=== PATIENT | female | born 1950 | race Two or more races ===

== ENCOUNTER 2019-04-17 12:39 | Emergency (ER) | payer OTHER ==
[2019-04-17 13:02] VITALS: BP 136/91; PULSE 105; TEMP 98.2
[2019-04-17 13:15] VITALS: BMI 22.8
--- NOTE | 2019-04-17 14:31 | PDOC ---
History of Present Illness - General Chief Complaint: Rash Stated Complaint: IRRITATION TO LT ARM Time Seen by Provider: 04/17/19 14:30 History Source: Patient - History of Present Illness Initial Comments: 04/17/19 14:46 The patient is a 68 year old female with a PMH of Sarcoid, HTN, HLD who presents to our ED c/o 1 day h/o R arm rash. Rash came on suddenly and is associated with a burning pain. No fevers/chills. Notes she is unsure if she had varicella as a child. Patient lives with her daughter and granddaughter. Grandaugter recieved her 2nd dose of the varicella vaccine two days previous. NKDA Surgical: C/S, Hysterectomy, Lung Biopsy, B/L Mastectomy 04/17/19 16:11 Past History - Past Medical History Allergies/Adverse Reactions: Allergies Allergy/AdvReac Type Severity Reaction Status Date / Time No Known Drug Allergies Allergy Unverified 10/22/12 16:32 Home Medications: Ambulatory Orders Amlodipine Besylate [Norvasc] 10 mg PO DAILY 11/06/12 Aspirin [ASA] 81 mg PO DAILY 11/06/12 Calcium Carbonate/Vitamin D3 [Calcium + Vitamin D Tablet] 1 each PO BID Enalapril Maleate [Vasotec] 10 mg PO DAILY 11/06/12 Glyburide/Metformin HCl [Glyburid-Metformin 1.25-250 mg] 1.25 each PO DAILY 04/11 Atorvastatin Ca [Lipitor] 20 mg PO DAILY 11/07/12 Hydrochlorothiazide [Hctz] 25 mg PO DAILY 11/07/12 Valacyclovir HCl [Valtrex -] 1,000 mg PO TID #20 tablet 04/17/19 Anemia: No Asthma: No Cancer: No Cardiac Disorders: Yes CVA: No COPD: No CHF: No Dementia: No Diabetes: Yes GI Disorders: No Disorders: No HTN: Yes Hypercholesterolemia: Yes Liver Disease: No Seizures: No Thyroid Disease: No Other medical history: osteo - Surgical History Abdominal Surgery: No Appendectomy: No Cardiac Surgery: No Cholecystectomy: Yes Lung Surgery: Yes (lung bx for sarcoidosis) Neurologic Surgery: No Orthopedic Surgery: No - Immunization History Immunization Up to Date: Yes - Suicide/Smoking/Psychosocial Hx Smoking History: Never smoked Hx Alcohol Use: No Drug/Substance Use Hx: No Substance Use Type: None Hx Substance Use Treatment: No Review of Systems - Review of Systems Constitutional: No: Chills, Fever HEENTM: No: Recent change in vision Respiratory: No: Shortness of Breath, Stridor Cardiac (ROS): No: Chest Pain, Lightheadedness, Palpitations ABD/GI: No: Constipated, Diarrhea : No: Burning, Dysuria Integumentary: Yes: Rash *Physical Exam - Vital Signs Last Vital Signs Temp Pulse Resp BP Pulse Ox 98.2 F 105 H 20 136/91 98 04/17/19 13:00 04/17/19 13:00 04/17/19 12:41 04/17/19 13:00 04/17/19 13:00 - Physical Exam Comments: 04/17/19 14:51 Extremity: LUE: erythematous, macular rash on dorsal/lateral surface of arm w/ palmar involvement with some vesicles on dorsal/lateral surface of LUE, vesicles intact CV: S1, S2, no M/R/G Respiratory: CLTA B/L, no wheeze/crackle Abdomen: soft, non-tender, no TTP, no hernia/mass Neuro: A&O x3, CN II-XII intact, non ataxic, non antalgic gait Medical Decision Making - Medical Decision Making 04/17/19 14:47 68 year old female with presumptive LUE shingles. No neurological deficit on PE suggesting progressive disease + < 24 hours onset Will start patient on 7 day course of Valcyclovir and analgesia w/Tylenol. 04/17/19 15:01 Patient counseled to keep rash covered, and limit skin exposure to household contacts including 1 year old granddaughter who was recently given her second dose of Varicella vaccine. I discussed the physical exam findings, ancillary test results and final diagnoses with the patient. I answered all of the patient's questions. The patient was satisfied with the care received and felt comfortable with the discharge plan and treatment plan. The patient will return to the Emergency Department with any new, persistent or worsening symptoms. *DC/Admit/Observation/Transfer Diagnosis at time of Disposition: Herpes zoster - Discharge Dispostion Disposition: HOME Condition at time of disposition: Good Decision to Admit order: No - Prescriptions Prescriptions: Valacyclovir HCl [Valtrex -] 1,000 mg PO TID #20 tablet - Referrals Referrals: Rolanda Orlando MD [Primary Care Provider] - - Patient Instructions Printed Discharge Instructions: DI for Shingles Additional Instructions: We have given your your first dose of a 7 day anti-viral medication. Please take the additional two doses as directed today. Starting tomorrow take 3 doses daily for the next 6 days. Keep your arm covered and encourage your household members to wash their hands often. You can take Tylenol (up to 4000 mg daily) for your pain. Follow-up with Dr. Fischer in the next 3 days for further evaluation and pain management. Return to the Emergency Department for any new/worsening/concerning symptoms. - Post Discharge Activity
[2019-04-17] MEDS ORDERED: ACETAMINOPHEN 500 MG TABLET (FP) PO ONE (14:55)
[2019-04-17] MEDS ORDERED: valACYclovir HCL 1000 MG TABLET PO ONE (14:56)
--- NOTE | 2019-04-17 15:27 | PDOC ---
Documentation entered by Zahra Lopez SCRIBE, acting as scribe for Elise Tucker MD. Elise Tucker MD: This documentation has been prepared by the John huang Brenda, SCRIBE, under my direction and personally reviewed by me in its entirety. I confirm that the documentation accurately reflects all work, treatment, procedures, and medical decision making performed by me. Attending Attestation - Resident Resident Name: Livia Cisse - ED Attending Attestation I have performed the following: I have examined & evaluated the patient, The case was reviewed & discussed with the resident, I agree w/resident's findings & plan, Exceptions are as noted - HPI HPI: 04/17/19 14:59 The patient is a 68 year old female, with a significant PMH of Sarcoid, DM, HLD , HTN who presents to the emergency department with a sudden onset of right arm itchiness since 7pm yesterday. The patent reports noticing, last night, that the itch became painful, and felt like a burning rash. The patient denies chest pain, shortness of breath, headache and dizziness. Denies fever, chills, nausea, vomiting, diarrhea and constipation. Denies dysuria, frequency, urgency and hematuria. Allergies: NKA Past surgical history: lung bx for sarcoidosis, C/S, Hysterectomy, B/L Mastectomy Social history: Denies tobacco use, alcohol use or illicit drug use. PCP: Not reported - Physicial Exam PE: GENERAL: Awake, alert, and fully oriented, in no acute distress HEAD: No signs of trauma EYES: PERRLA, EOMI, sclera anicteric, conjunctiva clear ENT: Auricles normal inspection, hearing grossly normal, nares patent, oropharynx clear without exudates. Moist mucosa NECK: Normal ROM, supple, no lymphadenopathy, JVD, or masses LUNGS: Breath sounds equal, clear to auscultation bilaterally. No wheezes, and no crackles HEART: Regular rate and rhythm, normal S1 and S2, no murmurs, rubs or gallops ABDOMEN: Soft, nontender, normoactive bowel sounds. No guarding, no rebound. No masses EXTREMITIES: Normal range of motion, no edema. No clubbing or cyanosis. No cords, erythema, or tenderness NEUROLOGICAL: Cranial nerves II through XII grossly intact. Normal speech, normal gait. Motor and sensation intact SKIN: Warm, dry, normal turgor. +Vesicular rash to L upper arm and L palm. Vesicles intact. - Medical Decision Making Pt with shingles, +prior history of chickenpox. Precautions given- avoid women, immunocompromised, and children who are unvaccinated. Valtrex to suppress, tylenol for pain. Stable for DC home.
[2019-04-17] MEDS ORDERED: ACETAMINOPHEN 325 MG TABLET (FP) ONE (15:46)
[2019-04-17] MEDS ORDERED: valACYclovir HCL 500 MG TABLET (FP) ONE (15:46)
== END 2019-04-17 16:00 | disposition home or self-care (01) ==
LOC: JER 12:39
DX: B02.9 Zoster without complications (principal); I10 Essential (primary) hypertension; E78.00 Pure hypercholesterolemia, unspecified; E11.9 Type 2 diabetes mellitus without complications; Z79.84 Long term (current) use of oral hypoglycemic drugs
CPT/HCPCS: 99281-25

== ENCOUNTER 2019-06-03 08:32 | Day surgery (SDC) | payer OTHER ==
[2019-06-02 09:24] VITALS: BMI 22.8
[2019-06-03] MEDS ORDERED: MIDAZOLAM HCL 2 MG/2 ML SINGLE DOSE VIAL ONE (09:14)
[2019-06-03] MEDS ORDERED: PROPOFOL 20 ML ONE (09:14)
--- NOTE | 2019-06-03 10:15 | HP ---
[facility] - Chief Complaint Chief Complaint: left hand pain, numbness, tingling, weakness History of Present Illness: left CTS History Source: Patient Limitations to Obtaining History: No Limitations - Past Medical History Allergies/Adverse Reactions: Allergies Allergy/AdvReac Type Severity Reaction Status Date / Time No Known Drug Allergies Allergy Unverified 10/22/12 16:32 - Current Medications Current Medications: Home Medications Medication Instructions Recorded Amlodipine Besylate [Norvasc] 10 mg PO DAILY 11/06/12 Aspirin [ASA] 81 mg PO DAILY 11/06/12 Calcium Carbonate/Vitamin D3 1 each PO BID 11/06/12 [Calcium + Vitamin D Tablet] Enalapril Maleate [Vasotec] 10 mg PO DAILY 11/06/12 Atorvastatin Ca [Lipitor] 20 mg PO DAILY 11/07/12 Hydrochlorothiazide [Hctz] 25 mg PO DAILY 11/07/12 Satellite Physical Exam - Physical Examination Vital Signs: Vital Signs Period Temp Pulse Resp BP Sys/Grubbs Pulse Ox Last 24 Hr 98.5 F-98.5 F 79-79 18-18 133-133/82-82 97 General Appearance: Well Nourished ENT: Clear Lung: Clear to auscultation Heart: Regular rate & rhythm Breasts: Soft Abdomen: Soft Extremities: No edema Satellite Impression/Plan - Impression/Plan Impression: left CTS Operative Procedure: left CTR Date to be Performed: 06/03/19
[2019-06-03] MEDS ORDERED: BUPIVACAINE HCL/PF 0.5% (5 MG/ML) 30 ML VIAL IJ ONE ×2 (10:49→11:15)
[2019-06-03] MEDS ORDERED: LIDOCAINE HCL 1%, 10 MG/ML (20ML VIAL) ONE (10:49)
[2019-06-03] MEDS ORDERED: ceFAZolin SODIUM 1 GM VIAL IVPB ONE (11:07)
[2019-06-03] MEDS ORDERED: ceFAZolin SODIUM 1 GM VIAL ONE (11:11)
[2019-06-03] MEDS ORDERED: LIDOCAINE HCL 1%, 10 MG/ML (20ML VIAL) INF ONE (11:15)
[2019-06-03] MEDS ORDERED: oxyCODONE HCL 5 MG TABLET PO PRN ×2 (11:28)
[2019-06-03] MEDS ORDERED: ONDANSETRON 4 MG/2 ML VIAL IVPUSH PRN (11:28)
[2019-06-03] MEDS ORDERED: LACTATED RINGERS SOLUTION 1,000 ML IV SCH (11:30)
--- NOTE | 2019-06-03 11:42 | OP ---
Operative Note - Note: Operative Date: 06/03/19 Pre-Operative Diagnosis: left CTS Operation: left CTR, tenosynovectomy Post-Operative Diagnosis: Same as Pre-op Surgeon: Giovanny Mckay Mail Agent: Sami Keyes Anesthesiologist/REFUND SPECIALIST: Cesar Siu Anesthesia: Local, MAC Specimens Removed: tenosynovium Estimated Blood Loss (mls): 0 Drains, Volume Out (mls): 0 Blood Volume Replaced (mls): 0 Fluid Volume Replaced (mls): 500 Operative Report Dictated: Yes
[2019-06-03 12:04] VITALS: TEMP 97.5
[2019-06-03 12:54] VITALS: BP 145/86; PULSE 63
--- NOTE | 2019-06-03 15:52 | SPEC ---
DATE OF OPERATION: 06/03/2019 PREOPERATIVE DIAGNOSIS: Left carpal tunnel syndrome. POSTOPERATIVE DIAGNOSIS: Left carpal tunnel syndrome. PROCEDURE: Left carpal tunnel release and tenosynovectomy. SURGEON: Giovanny Mckay MD ASSISTANTS: Sami Keyes M.D. ANESTHESIOLOGIST: Ángel Siu MD, overseeing THANG Siu. DRAINS: None. COMPLICATIONS: None. SPECIMENS: Tenosynovium, left wrist. BLOOD LOSS: None. BLOOD GIVEN: None. FLUID REPLACEMENT: 500 mL of Plasmalyte. INDICATIONS: This patient is a 68-year-old female with a preoperative diagnosis of a severe left carpal tunnel syndrome. After understanding the potential risks, complications, alternatives and benefits of surgery versus nonsurgical treatment, the patient elected to undergo this procedure. After extensive preoperative discussions, the patient understands that she may not get complete relief of her symptoms, including continuation of the numbness she has, finger stiffness. She may have weakness. She may need physical therapy. She understands these, other potential risks and complications which were discussed and has elected to go forward with surgery. DESCRIPTION OF PROCEDURE: The patient was brought to the operating room, peripheral IV placed and intravenous sedation was given. One gram of intravenous Ancef was given. MAC anesthesia was induced. A tourniquet was applied to the left upper arm and the left upper extremity was prepped and draped in sterile fashion. The entire case was done under 3.8 loupe magnification. A marking pen was utilized to shawnee out a longitudinal incision in an already existing skin crease. Twenty mL of 0.5% Marcaine mixed with 1% Lidocaine was injected in and around the surgical incision. The left upper extremity was elevated, exsanguinated with an Esmarch bandage and the tourniquet inflated to 250 mmHg. A No. 15 scalpel blade was utilized to cut down through the skin. Subcutaneous hemostasis was achieved with the bipolar cautery. Dissection was done through the superficial palmar fascia. Self-retaining retractors were placed into the wound. Under direct visualization, the transverse carpal ligament was transected with a No. 15 scalpel blade, exposing the median nerve and the contents of the carpal tunnel. The distal and proximal extents of the release were completed with a Littler scissor and checked with irrigation and my small finger. They were seen to be complete. Limited dissection was done on the radial side of the median nerve and more extensive dissection was done on the ulnar side of the median nerve. The patients nerve was seen to be quite compressed by epineurium and therefore a limited epineurotomy was performed. A Ragnell retractor was used to gently retract the median nerve in a radial direction. The patient had a lot of tenosynovitis and therefore a tenosynovectomy was performed off all 9 flexor tendons. This was passed off the field as tenosynovium left wrist. The floor of the carpal tunnel was checked. There were no abnormal masses or ganglion cysts. The area was copiously irrigated and washed out and closure begun. Undyed 4-0 Vicryl was used to close the deep dermal layer. Final skin reapproximation was done with horizontal mattress 4-0 nylon sutures. The area was then washed and dried, covered with Xeroform, 4x4s, fluffs between the fingers, Webril and a 4-inch plaster roll was utilized to make a volar splint, which was then wrapped with Lou and Coban. The tourniquet was taken down after a total tourniquet time of 17 minutes. There were no complications during the case. The patient tolerated the procedure well and was brought to the ambulatory recovery room in stable condition. Cipriano [id number]
--- NOTE | 2019-06-04 17:56 | PATH ---
Surgical Pathology Report Patient Name: CRIS JIMENEZ [facility]. Rec. #: [id number] /Age/Gender: 1950 (Age: 68) / F Account: [id number] Location: [facility] SURGICAL Taken: 06/03/2019 Received: 06/03/2019 Reported: 06/04/2019 Physicians: Cipriano Steen M.D. Specimen(s) Received LEFT TENOSYNOVIUM Clinical History Left carpel tunnel Final Diagnosis LEFT TENOSYNOVIUM, EXCISION: TENOSYNOVIAL TISSUE WITH FOCAL FIBROSIS. Electronically Signed Jose G Figueroa M.D. Gross Description Received in formalin, labeled "left tenosynovium" are multiple bennett t yellow, irregular portions of soft tissue measuring 2.5 x 2.0 x 2.2 cm in aggregate. The specimen is submitted in toto in one cassette. LEONID/06/03/2019 aquiles/06/03/2019
== END 2019-06-03 13:50 | disposition home or self-care (01) ==
LOC: JASU-SURG 08:32
PROVIDERS: ATTEND Orthopaedic Surgery
PROC: 0LB80ZZ Excision of Left Hand Tendon, Open Approach (ICD-10-PCS; 2019-06-03)
PROC: 01N50ZZ Release Median Nerve, Open Approach (ICD-10-PCS; principal; 2019-06-03 10:00)
DX: G56.02 Carpal tunnel syndrome, left upper limb (principal); M65.842 Other synovitis and tenosynovitis, left hand
CPT/HCPCS: 88304-TC

== ENCOUNTER 2019-07-29 07:12 | Day surgery (SDC) | payer OTHER ==
[2019-07-27 16:33] VITALS: BMI 22.8
--- NOTE | 2019-07-29 08:03 | HP ---
[facility] - Past Medical History Allergies/Adverse Reactions: Allergies Allergy/AdvReac Type Severity Reaction Status Date / Time No Known Drug Allergies Allergy Unverified 10/22/12 16:32 - Current Medications Current Medications: Home Medications Medication Instructions Recorded Amlodipine Besylate [Norvasc -] 10 mg PO DAILY 11/06/12 Aspirin [ASA -] 81 mg PO DAILY 11/06/12 Calcium Carbonate/Vitamin D3 1 each PO BID 11/06/12 [Calcium 600-Vit D3 200 Tablet] Enalapril Maleate [Vasotec -] 10 mg PO DAILY 11/06/12 Atorvastatin Ca [Lipitor] 20 mg PO DAILY 11/07/12 Hydrochlorothiazide [Hctz -] 25 mg PO DAILY 11/07/12 Hydrocodone/Acetaminophen 1 each PO Q6H #20 tablet MDD 4 06/03/19 [Hydrocodone-Acetamin 5-325 mg]
[2019-07-29] MEDS ORDERED: MIDAZOLAM HCL 2 MG/2 ML SINGLE DOSE VIAL ONE (08:43)
[2019-07-29] MEDS ORDERED: PROPOFOL 20 ML ONE (08:43)
--- NOTE | 2019-07-29 08:43 | HP ---
Satellite [facility] - Chief Complaint Chief Complaint: right hand pain/numbness - Past Medical History Allergies/Adverse Reactions: Allergies Allergy/AdvReac Type Severity Reaction Status Date / Time No Known Drug Allergies Allergy Unverified 10/22/12 16:32 - Current Medications Current Medications: Home Medications Medication Instructions Recorded Amlodipine Besylate [Norvasc -] 10 mg PO DAILY 11/06/12 Aspirin [ASA -] 81 mg PO DAILY 11/06/12 Calcium Carbonate/Vitamin D3 1 each PO BID 11/06/12 [Calcium 600-Vit D3 200 Tablet] Enalapril Maleate [Vasotec -] 10 mg PO DAILY 11/06/12 Atorvastatin Ca [Lipitor] 20 mg PO DAILY 11/07/12 Hydrochlorothiazide [Hctz -] 25 mg PO DAILY 11/07/12 Hydrocodone/Acetaminophen 1 each PO Q6H #15 tablet MDD 4 07/29/19 [Hydrocodone-Acetamin 5-325 mg] Satellite Physical Exam - Physical Examination Vital Signs: Vital Signs Period Temp Pulse Resp BP Sys/Grubbs Pulse Ox Last 24 Hr 97.9 F 87 20 137/84 98 General Appearance: Well Nourished, Well Developed, Alert & Oriented x3 ENT: Clear Lung: Normal air movement Heart: Regular rate & rhythm Extremities: Other (right hand- + tinles, + phalens, emg + cts) Neurological: Intact, Alert, Oriented Satellite Impression/Plan - Impression/Plan Impression: right cts Operative Procedure: right ctr Date to be Performed: 07/29/19
[2019-07-29] MEDS ORDERED: BUPIVACAINE HCL/PF 0.5% (5 MG/ML) 30 ML VIAL IJ ONE ×3 (09:26→10:01)
[2019-07-29] MEDS ORDERED: LIDOCAINE HCL 1%, 10 MG/ML (20ML VIAL) ONE (09:26)
[2019-07-29] MEDS ORDERED: ceFAZolin SODIUM 1 GM VIAL IVPB ONE (09:36)
[2019-07-29] MEDS ORDERED: ceFAZolin SODIUM 1 GM VIAL ONE (09:36)
[2019-07-29] MEDS ORDERED: LIDOCAINE HCL 1%, 10 MG/ML (20ML VIAL) NR ONE ×2 (10:00)
--- NOTE | 2019-07-29 10:26 | OP ---
Operative Note - Note: Operative Date: 07/29/19 Pre-Operative Diagnosis: right CTS Operation: right CTR, tenosynovectomy Post-Operative Diagnosis: Same as Pre-op Surgeon: Giovanny Mckay Senior Scheduler: Sami Keyes Anesthesiologist/TRADE SPECIALIST: Lior Guzman Anesthesia: Local, MAC Specimens Removed: tenosynovium Estimated Blood Loss (mls): 0 Drains, Volume Out (mls): 0 Blood Volume Replaced (mls): 0 Fluid Volume Replaced (mls): 500 Operative Report Dictated: Yes
[2019-07-29 11:55] VITALS: BP 140/76; PULSE 76; TEMP 98
[2019-07-29] MEDS ORDERED: oxyCODONE HCL 5 MG TABLET PO PRN (12:11)
[2019-07-29] MEDS ORDERED: ONDANSETRON 4 MG/2 ML VIAL IVPUSH PRN (12:11)
[2019-07-29] MEDS ORDERED: LACTATED RINGERS SOLUTION 1,000 ML IV SCH (12:15)
--- NOTE | 2019-07-29 20:52 | SPEC ---
DATE OF OPERATION: DATE OF DICTATION: 07/29/2019 PREOPERATIVE DIAGNOSIS: Right carpal tunnel syndrome. POSTOPERATIVE DIAGNOSIS: Right carpal tunnel syndrome. PROCEDURE: Right carpal tunnel release and tenosynovectomy. SURGEON: Giovanny Mckay MD RIVER EXPEDITION GUIDE: Sami Keyes MD ANESTHESIA: Lior Guzman CRNA, MAC anesthesia with local injection of 10 mL 0.5% Marcaine, 1% lidocaine mix. DRAINS: None. COMPLICATIONS: None. SPECIMENS: Tenosynovium. ESTIMATED BLOOD LOSS: None. BLOOD GIVEN: None. FLUID REPLACEMENT: 500 mL. INDICATION FOR PROCEDURE: This patient is a 68-year-old female with a severe right carpal tunnel syndrome. After understanding the potential risks, complications, alternatives, and benefits to surgery versus nonsurgical treatment, patient elected to undergo this procedure. The patient also understands that she may not get complete relief of her symptoms including continuation of the numbness. DESCRIPTION OF PROCEDURE: The patient was brought to the operating room, peripheral IV placed and intravenous sedation was given. One gram of intravenous Ancef was given. MAC anesthesia was induced. A tourniquet was applied to the right upper arm and the right upper extremity was prepped and draped in sterile fashion. The entire case was done under 3.8 loupe magnification. A marking pen was utilized to shawnee out a longitudinal incision in an already existing skin crease. Twenty mL of 0.5% Marcaine mixed with 1% Lidocaine was injected in and around the surgical incision. The right upper extremity was elevated, exsanguinated with an Esmarch bandage and the tourniquet inflated to 250 mmHg. A No. 15 scalpel blade was utilized to cut down through the skin. Subcutaneous hemostasis was achieved with the bipolar cautery. Dissection was done through the superficial palmar fascia. Self-retaining retractors were placed into the wound. Under direct visualization, the transverse carpal ligament was transected with a No. 15 scalpel blade, exposing the median nerve and the contents of the carpal tunnel. The distal and proximal extents of the release were completed with a Littler scissor and checked with irrigation and my small finger. They were seen to be complete. Limited dissection was done on the radial side of the median nerve and more extensive dissection was done on the ulnar side of the median nerve. The patients nerve was seen to be quite compressed by epineurium and therefore a limited epineurotomy was performed. A Ragnell retractor was used to gently retract the median nerve in a radial direction. The patient had a lot of tenosynovitis and therefore a tenosynovectomy was performed off all 9 flexor tendons. This was passed off the field as tenosynovium right wrist. The floor of the carpal tunnel was checked. There were no abnormal masses or ganglion cysts. The area was copiously irrigated and washed out and closure begun. Undyed 4-0 Vicryl was used to close the deep dermal layer. Final skin reapproximation was done with horizontal mattress 4-0 nylon sutures. The area was then washed and dried, covered with Xeroform, 4x4s, fluffs between the fingers, Webril and a 4-inch plaster roll was utilized to make a volar splint, which was then wrapped with Lou and Coban. The tourniquet was taken down after a total tourniquet time of 18 minutes. There were no complications during the case. The patient tolerated the procedure well and was brought to the ambulatory recovery room in stable condition. Cipriano [id number]
--- NOTE | 2019-07-31 18:17 | PATH ---
Surgical Pathology Report Patient Name: CRIS JIMENEZ [facility]. Rec. #: [id number] /Age/Gender: 1950 (Age: 68) / F Account: [id number] Location: [facility] SURGICAL Taken: 07/29/2019 Received: 07/30/2019 Reported: 07/31/2019 Physicians: Cipriano Steen M.D. Specimen(s) Received TENOSYNOVIUM RIGHT WRIST Clinical History Right carpal tunnel syndrome Final Diagnosis TENOSYNOVIUM, WRIST, RIGHT, CARPAL TUNNEL RELEASE: BENIGN DENSE FIBROCONNECTIVE TISSUE. Electronically Signed Hilda Cormier M.D. Gross Description Received in formalin labeled "tenosynovium," is a 1.5 x 0.9 x 0.3 cm aggregate of bennett-yellow portions of soft tissue, consistent with tenosynovium. The specimen is entirely submitted in one cassette. /07/30/2019 saudi07/30/2019
== END 2019-07-29 11:40 | disposition home or self-care (01) ==
LOC: JASU-SURG 07:12
PROVIDERS: ATTEND Orthopaedic Surgery
PROC: 0LB70ZZ Excision of Right Hand Tendon, Open Approach (ICD-10-PCS; 2019-07-29)
PROC: 01N50ZZ Release Median Nerve, Open Approach (ICD-10-PCS; principal; 2019-07-29 09:00)
DX: G56.01 Carpal tunnel syndrome, right upper limb (principal); M65.841 Other synovitis and tenosynovitis, right hand
CPT/HCPCS: 88304-TC